=== PATIENT | female | born 1950 | race Caucasian/White ===

== ENCOUNTER 2016-10-02 10:48 | Day surgery (SDC) | payer MEDICARE, OTHER ==
[~2016-10-02] VITALS: Ht 152.4 cm; Wt 98.2 kg
--- NOTE | 2016-10-02 07:47 | PCM.HPANE ---
Patient Data Surgeon Admitting Provider: Attending Provider:Lauren Reynoso MD Primary Care Physician:Fanny Glasgow MD Other Provider:[facility] Reason for Visit Mixed Incontinence, Urgency Of Urination Ht/WT & BMI Height (Feet): 5 Height (Inches): 0 Weight (Kilograms): 98.88 Body Mass Index 42.00 Allergies Uncoded Allergies: SULFA (Adverse Reaction, Severe, ITCHING, 10/01/16) Past Anesthesia History Anesthesia History: Denies:: Anesthesia Reactions, Malignant Hyperthermia Diabetes History Hx Diabetes?: Yes Type of Diabetes: Type II Glycemic Control: Diet Controlled MRSA MRSA: No Medications Blood Thinner: Aspirin Hypertension Medication: Yes (LOSARTAN) Reported Medications Solifenacin Succinate (Vesicare)5 Mg Gjfmyx26 Mg PO DAILY #60 TABLET 10/01/16 Zolpidem (Ambien)5 Mg Tablet5 Mg PO HS PRN For Insomnia Ref 0 10/01/16 Cholecalciferol (Vitamin D3) (Vitamin D)1,000 Unit Capsule1,000 Unit PO DAILY # 1 BOTTLE Ref 0 10/01/16 [place]-3 Fatty Acids/Fish Oil ([place] 3 1,000 mg Softgel)1 Each Capsule1 Each PO DAILY 10/01/16 Pravastatin 80 Mg Rxkqoz40 Mg PO HS Ref 0 10/01/16 Melatonin/Pyridoxine (Melatonin 3 mg Tablet)1 Each Tablet1-2 Each PO HS PRN PRN MR X1 10/01/16 Losartan Potassium 25 Mg Cnaltw21 Mg PO DAILY 10/01/16 Levothyroxine 150 Mcg Fjtjcs197 Mcg PO DAILY Ref 0 10/01/16 Fluoxetine 20 Mg Dqpcqim17 Mg PO DAILY Ref 0 10/01/16 Ferrous Gluconate 324 Mg Izhxnh266 Mg PO DAILY Ref 0 10/01/16 Calcium Carbonate 650 Mg Tablet1,300 Mg PO DAILY 10/01/16 Aspirin 81 Mg Flnwyx30 Mg PO DAILY Ref 0 10/01/16 Discontinued Reported Medications Nitrofurantoin Monohyd/M-Cryst (MacroBid)100 Mg Cdfbkid257 Mg PO HS Ref 0 10/01/16 Cephalexin (Keflex)500 Mg Ufxjyjd915 Mg PO BID #40 CAPSULE Ref 0 10/01/16 Oxybutynin Chloride ER 10 Mg Tab.er.2410 Mg PO DAILY Ref 0 10/01/16 History History of ENT Problems?: Yes Hx of Heart Problems?: Yes Cardiovascular History: Positive for:: Heart Murmur (REPORTED BY PT; NONE HEARD ON PREOP EXAM) Hypertension (HYPERLIPIDEMIA) Other Cardiac History: HX OF ANEMIA Hx of Respiratory Problem?: Yes Respiratory History: Positive for:: Pneumonia (HX OF) Use of C-PAP Machine (JEFFERSON+ PRIOR TO WT LOSS/GASTRIC BYPASS) Hx Neurologic Problems?: No Hx of GI Problems?: Yes Gastrointestinal History: Positive for:: Heartburn (INTERMITTANT) Other GI Pertinent History: S/P GASTRIC BYPASS,INCISIONAL HERNIA RPR Hx of Problems?: Yes Female Hx: Denies:: Currently (S/P BTL) Skin History: Denies:: History Skin Disorders? Pressure Ulcers Hx Musculoskeletal Problems?: Yes Musculoskeletal History: Positive for:: Musculoskeletal Trauma (S/P RT WRIST ORIF,CTR) Hx of Psycho/Social Problems?: Yes Psycho Social History: Positive for:: Anxiety Hx Depression Hx Surgeries?: Yes (GASTRIC BYPASS,INCISIONAL HERNIA RPR,CTR,BTL,RT WRIST ORIF) Hx Any Other Health Problems?: Yes Other History: Positive for:: Thyroid Disease Denies:: Cancer Endocrine Disease Hospitalization History Blood Transfusions: Positive for:: Accept Blood Products? Denies:: Blood Transfusions Hx Diabetes: Yes Hx Alcohol Use: YesAlcoholic Drinks Per Day: 1-2/YRHx Substance Use: NoHave You Smoked inLast 12 mo: NoApprox How Many Cigarettes/day: 1 PPD X 15YRS Stop/Bang S-Snoring: Do You Snore Loudly: Yes T-Tired: feel tired, fatigued: No O-Obsered: Observed not breath: No P-Blood Pressure: treated: Yes B- Body Mass Index > 35 kg/m2: Yes A- Age over 50: Yes N- Neck Large Circumference: No G- Gender Male: No JEFFERSON Total Score: 4 JEFFERSON Risk Assessment: High Risk, =/>3 Yes JEFFERSON Category 4 OutPt Procedure: Yes Risk Assessment Category Category 1A: Patient has history of documented sleep apnea, and HAS NOT received any narcotic, sedative or anesthesia administration during this stay. Category 1B: Patient has history of documented sleep apnea, and HAS received any narcotic , sedative or anesthesia administration during this stay Category 2: Patient has SUSPECTED Obstructive Sleep Apnea, and HAS received any narcotic , sedative or anesthesia administration during this stay. Category 3: Patient has SUSPECTED Obstructive Sleep Apnea and HAS NOT received narcotic, sedative or anesthesia administration during this stay. Category 4: Outpatient in Procedural Areas with known sleep apnea or who screen positive for High Risk via the STOP/BANG questionnaire. Exam Exam General Appearance: Alert, Oriented X3, Cooperative, No Acute Distress HEENT/AIRWAY: MP 2 Lungs: Clear to Auscultation, Normal Air Movement Heart: Exam Unremarkable, Regular Rate/Rhythm, No Murmurs/Rubs/Gallops Plan Impression Patient chart reviewed, patient interviewed and anesthestic plan with risks, benefits, and alternatives discussed, and informed consent obtained. ASA Physical Status: ASA3 Severe Disease Anesthetic Plan: MAC Bene/Risks/Altern/Consents: Yes HP Complete Prior to Induction: Yes Sandrine Garcia MD Oct 02, 2016 07:47
[~2016-10-02 10:48] MED LIST: ASPI-973 PO; CALC650T19 PO; CEPH-512 PO; CHOL100045 PO; CeFAZolin 2 Gm/50 mL D5W IV Premix IV ONE; FERR324T5 PO; FLUO20CA25 PO; LEVO150T5 PO; LOSA25TA21 PO; MELA1TAB11 PO; NITR100 PO; OMEG1CAP56 PO; OXYB10TA PO; PRAV80TA2 PO; SOLI5TAB2 PO; ZLP5T PO
[2016-10-02] MEDS ORDERED: Propofol 10,000 mCg/mL 20 mL Inj ONE (10:49)
[2016-10-02] MEDS ORDERED: fentaNYL-PF 50 mCg/mL 2 mL Inj ONE (10:49)
[2016-10-02 11:13] VITALS: BP 154/87; PULSE 81; RESP 18; O2SAT 97
[2016-10-02] MEDS ORDERED: CeFAZolin 2 Gm/50 mL D5W Duplex Bag IV ONE (11:27)
[2016-10-02] MEDS: Lactated Ringer's 1,000 ML IV SCH ×3 (11:44→12:20)
[2016-10-02] MEDS ORDERED: Bupivacaine-MPF 0.25% 30 mL Inj INFILTRATE ONE (12:33)
[2016-10-02] MEDS ORDERED: Vancomycin 1,000 mg Inj IRRIGATION ONE (12:33)
[2016-10-02] MEDS ORDERED: Gentamicin 40 mg/mL 2 mL Inj IRRIGATION ONE (12:33)
[2016-10-02] MEDS ORDERED: Lactated Ringer's 1,000 ML IV SCH (12:34)
[2016-10-02] MEDS ORDERED: Lactated Ringer's 500 ML IV PRN (12:34)
[2016-10-02] MEDS ORDERED: EPHEDrine Sulfate 50 mg/mL Inj IVPUSH PRN (12:35)
[2016-10-02] MEDS ORDERED: Dexamethasone 4 mg/mL Inj IVPUSH PRN (12:35)
[2016-10-02] MEDS ORDERED: Phenylephrine 10,000 mCg/mL Inj IVPUSH PRN (12:35)
[2016-10-02] MEDS ORDERED: Ondansetron 2 mg/mL 2 mL Inj IVPUSH PRN (12:35)
[2016-10-02] MEDS ORDERED: fentaNYL-PF 50 mCg/mL 2 mL Inj IVPUSH PRN (12:35)
[2016-10-02] MEDS ORDERED: MetoCLOpramide 5 mg/mL 2 mL Inj IVPUSH PRN (12:35)
[2016-10-02] MEDS ORDERED: hydrALAZINE 20 mg/mL Inj IVPUSH PRN (12:35)
[2016-10-02] MEDS ORDERED: HYDROmorphone 1 mg/mL Inj IVPUSH PRN (12:35)
[2016-10-02] MEDS ORDERED: Atropine 0.4 mg/mL Inj IVPUSH PRN (12:35)
[2016-10-02] MEDS ORDERED: Labetalol 5 mg/mL 4 mL Inj IV PRN (12:35)
[2016-10-02] MEDS ORDERED: Ondansetron 8 mg ODT Tablet PO PRN (14:00)
[2016-10-02] MEDS ORDERED: HYDROcodone-APAP 5-325 mg Tablet PO PRN (14:00)
[2016-10-02 14:02] VITALS: BP 149/66; PULSE 68; RESP 18; O2SAT 95
--- NOTE | 2016-10-02 14:04 | DRSVH ---
PROCEDURE: X-RAY SURGICAL FLUORO C-ARM <1 HR INDICATIONS: STAGE ONE INTERSTIM COMPARISON: None. FINDINGS: Presumed bladder stimulator catheter is noted to traverse the sacrum. IMPRESSION: Presumed bladder stimulator catheter noted. Dictated by: Ed Simental RR Interpreted: Lupe Figueroa MD on 10/02/2016 at 14:03 Transcribed by: MERRICK on 10/02/2016 at 14:04 Approved by: Lupe Figueroa MD, PhD on 10/02/2016 at 16:15
--- NOTE | 2016-10-02 14:12 | PCM.ANEP1 ---
Post Anesthesia Phase 1 PACU Phase 1 Assessment Vital Signs Vital Signs Date Time Temp Pulse Resp B/P Pulse Ox O2 Delivery O2 Flow Rate FiO2 10/02/16 14:02 36.9 68 18 149/66 95 Room Air 10/02/16 11:13 36.8 81 18 154/87 97 Room Air Level of Alertness: Awake, talking ANTHONY's with Equal Strength: Yes Pain: No Nausea or Vomiting: No Oxygen Delivery: Room Air Lungs: Clear to Auscultation, Normal Air Movement Sandrine Garcia MD Oct 02, 2016 14:12
[2016-10-02 14:50] VITALS: BP 157/74; PULSE 72; RESP 20; O2SAT 97
--- NOTE | 2016-10-02 15:35 | PCM.ANEP2 ---
Post Anesthesia Evaluation ASA/CMS Post Anesthesia VS in Patient's Normal Range?: Yes Resp Stable; Airway Patent?: Yes CV Function & Hydration Stable: Yes Mental Status Recovered?: Yes Pain control Satisfactory?: Yes N/V Control Satisfactory?: Yes Sandrine Garcia MD Oct 02, 2016 15:35
--- NOTE | 2016-10-03 14:06 | OP ---
[address] [address] OPERATIVE REPORT PATIENT: ARLENE PACHECO : 1950 MR#: [id number] ADMIT: 10/02/2016 JOB ID: [id number] DATE OF SURGERY: 10/02/2016 PROCEDURE: 1. Stage 1 InterStim implant to include transforaminal placement of sacral neuro electrode through the S3 foramen. 2. Fluoroscopic imaging and guidance. SURGEON: Lauren Reynoso MD. ANESTHESIA: Local with monitored anesthesia care. PREOPERATIVE DIAGNOSIS(ES): Intractable urinary urgency, frequency, urge incontinence. POSTOPERATIVE DIAGNOSIS(ES): Intractable urinary urgency, frequency, urge incontinence. INDICATIONS: The patient is a 66-year-old with a very longstanding history of severe urinary tract symptoms including urinary urgency, frequency, urge incontinence, failing conservative measures, medical treatments, multiple medications. Electing trial of sacral nerve modulation for her issues. PROCEDURE IN DETAIL: After appropriate informed consent was obtained, patient was brought to the operating room. She received IV antibiotics prior to onset of the procedure. She was made comfortable in the prone position. All pressure points carefully padded. Fluoroscope was brought in. She was cleaned, prepped, and draped in usual sterile fashion. We identified bony landmarks made somewhat difficult by patient's body habitus. A 5-inch finder needle was used to traverse first the right and then the left S3 foramen, testing numerous locations. Ultimately, we selected a lead placement with excellent jules responses at very low thresholds of 0.2 to 0.3 on all four electrodes. We were unable to elicit toe response in any needle placement scenario after testing numerous on the right than the left. Location chosen was on the right. The finder needle was used to convert in Seldinger fashion over to the quadripolar electrode which advanced nicely into good position. As above, we had good responses of jules and appropriate sensory response at very low thresholds on all four electrodes. Fluoroscopy confirmed good position. We then created a right-sided buttock pocket sharply and bluntly with electrocautery. Tunneled the distal end of the lead itself out to this area, made a connection to the extension wire, the disposable, which was then tunneled out to the patient's left side, the contralateral side, to maximize distance between the internalized permanent portion of the lead and the externalized portion of the wire to prevent infection. Wounds themselves were irrigated out copiously with antibiotic solution. There was good hemostasis. We closed them in a layer of 2-0 Vicryl, layer of 4-0 Monocryl, and benzoin and Steri-Strips. A sterile dressing was applied. The patient tolerated procedure very well, was awakened and taken back to the one-day surgery area prior to discharge to home.
== END 2016-10-02 23:59 | disposition home or self-care (01) ==
LOC: SAS 10:48
PROVIDERS: ATTEND Urology
DX: N39.46 Mixed incontinence (principal); R35.0 Frequency of micturition; Z87.440 Personal history of urinary (tract) infections; I10 Essential (primary) hypertension; E78.5 Hyperlipidemia, unspecified; E11.9 Type 2 diabetes mellitus without complications; E03.9 Hypothyroidism, unspecified; D64.9 Anemia, unspecified; K21.9 Gastro-esophageal reflux disease without esophagitis; R01.1 Cardiac murmur, unspecified; E66.01 Morbid (severe) obesity due to excess calories; Z68.41 Body mass index [BMI] 40.0-44.9, adult; Z98.84 Bariatric surgery status; Z87.891 Personal history of nicotine dependence; Z79.82 Long term (current) use of aspirin
CPT/HCPCS: 64581; 76000; C1778; J0690; J1580; J2250; J3010; J3370; J7120

== ENCOUNTER 2016-10-11 06:18 | Day surgery (SDC) | payer MEDICARE, OTHER ==
[~2016-10-11] VITALS: Ht 152.4 cm; Wt 99.2 kg
[~2016-10-11 06:18] MED LIST changes: -CEPH-512 PO; -CeFAZolin 2 Gm/50 mL D5W IV Premix IV ONE; +CeFAZolin Inj 2 GM in IV Premix 1 EACH IV ONE; -NITR100 PO; -OXYB10TA PO
[2016-10-11] MEDS ORDERED: fentaNYL-PF 50 mCg/mL 2 mL Inj ONE (06:19)
[2016-10-11] MEDS ORDERED: Lidocaine PF 1% 30 mL Inj ONE (06:19)
[2016-10-11] MEDS ORDERED: Propofol 10,000 mCg/mL 20 mL Inj ONE (06:19)
[2016-10-11] MEDS: Lactated Ringer's 1,000 ML IV SCH ×2 (06:30→08:48)
[2016-10-11 06:42] VITALS: BP 139/66; PULSE 63; RESP 14; O2SAT 95
[2016-10-11 07:03] VITALS: BP 139/66; PULSE 63; RESP 14; O2SAT 95
[2016-10-11] MEDS ORDERED: SULF1TAB7 PO (07:12)
[2016-10-11] MEDS ORDERED: Phenylephrine 10,000 mCg/mL Inj IVPUSH PRN (07:50)
[2016-10-11] MEDS ORDERED: Lactated Ringer's 500 ML IV PRN (07:50)
[2016-10-11] MEDS ORDERED: EPHEDrine Sulfate 50 mg/mL Inj IVPUSH PRN (07:50)
[2016-10-11] MEDS ORDERED: Lactated Ringer's 1,000 ML IV SCH (07:50)
[2016-10-11] MEDS ORDERED: MetoCLOpramide 5 mg/mL 2 mL Inj IVPUSH PRN (07:50)
[2016-10-11] MEDS ORDERED: hydrALAZINE 20 mg/mL Inj IVPUSH PRN (07:50)
[2016-10-11] MEDS ORDERED: HYDROmorphone 1 mg/mL Inj IVPUSH PRN (07:50)
[2016-10-11] MEDS ORDERED: Ondansetron 2 mg/mL 2 mL Inj IVPUSH PRN (07:50)
[2016-10-11] MEDS ORDERED: Atropine 0.4 mg/mL Inj IVPUSH PRN (07:50)
[2016-10-11] MEDS ORDERED: Dexamethasone 4 mg/mL Inj IVPUSH PRN (07:50)
[2016-10-11] MEDS ORDERED: Labetalol 5 mg/mL 4 mL Inj IV PRN (07:50)
[2016-10-11] MEDS ORDERED: fentaNYL-PF 50 mCg/mL 2 mL Inj IVPUSH PRN (07:50)
--- NOTE | 2016-10-11 08:13 | PCM.HPANE ---
Patient Data Date of Service: Oct 11, 2016 Surgeon Admitting Provider: Attending Provider:Lauren Reynoso MD Primary Care Physician:Fanny Glasgow MD Other Provider:Damion Saha Anesthesia Reason for Visit Mixed Incontinence, Urgency Of Urination Ht/WT & BMI Height (Feet): 5 Height (Inches): 0.00 Weight (Kilograms): 99.200 Body Mass Index 42.00 Allergies Uncoded Allergies: SULFA (Adverse Reaction, Severe, ITCHING, 10/01/16) Past Anesthesia History Anesthesia History: Denies:: Anesthesia Reactions, Malignant Hyperthermia Diabetes History Hx Diabetes?: No Type of Diabetes: Type II Glycemic Control: Diet Controlled MRSA MRSA: No Medications Blood Thinner: Aspirin Hypertension Medication: Yes Home Meds Incl Beta Kassandra: No Reported Medications Sulfamethoxazole/Trimeth 800-160 mg (Bactrim DS)1 Each Tablet1 Tablet PO BID Ref 0 10/11/16 Zolpidem (Ambien)5 Mg Tablet5 Mg PO HS PRN For Insomnia Ref 0 10/01/16 Cholecalciferol (Vitamin D3) (Vitamin D)1,000 Unit Capsule1,000 Unit PO DAILY # 1 BOTTLE Ref 0 10/01/16 [place]-3 Fatty Acids/Fish Oil ([place] 3 1,000 mg Softgel)1 Each Capsule1 Each PO DAILY 10/01/16 Pravastatin 80 Mg Kokouj41 Mg PO HS Ref 0 10/01/16 Melatonin/Pyridoxine (Melatonin 3 mg Tablet)1 Each Tablet1-2 Each PO HS PRN PRN MR X1 10/01/16 Losartan Potassium 25 Mg Zvjoyj18 Mg PO DAILY 10/01/16 Levothyroxine 150 Mcg Hqnezl795 Mcg PO DAILY Ref 0 10/01/16 Fluoxetine 20 Mg Ckmkrzp48 Mg PO DAILY Ref 0 10/01/16 Ferrous Gluconate 324 Mg Mlrolu800 Mg PO DAILY Ref 0 10/01/16 Calcium Carbonate 650 Mg Tablet1,300 Mg PO DAILY 10/01/16 Aspirin 81 Mg Koiuqv39 Mg PO DAILY Ref 0 10/01/16 Discontinued Reported Medications Solifenacin Succinate (Vesicare)5 Mg Dsblld88 Mg PO DAILY #60 TABLET 10/01/16 History History of ENT Problems?: Yes Hx of Heart Problems?: Yes Cardiovascular History: Positive for:: Heart Murmur (REPORTED BY PT; NONE HEARD ON PREOP EXAM) Hypertension Hx of Respiratory Problem?: No Respiratory History: Positive for:: Pneumonia (HX OF) Denies:: Use of C-PAP Machine (past hx of use, not since wt loss) Hx Neurologic Problems?: No Hx of GI Problems?: Yes Gastrointestinal History: Positive for:: Heartburn (intermittent) Other GI Pertinent History: hx of gastric bypass Hx of Problems?: Yes Genitourinary History: Denies:: Urinary Tract Infection Female Hx: Denies:: Currently Skin History: Denies:: History Skin Disorders? Pressure Ulcers Hx Musculoskeletal Problems?: Yes Musculoskeletal History: Positive for:: Musculoskeletal Trauma (S/P RT WRIST ORIF,CTR) Hx of Psycho/Social Problems?: Yes Psycho Social History: Positive for:: Anxiety Hx Depression Hx Surgeries?: Yes (GASTRIC BYPASS,INCISIONAL HERNIA RPR,CTR,BTL,RT WRIST ORIF) Hx Any Other Health Problems?: Yes Other History: Positive for:: Thyroid Disease Denies:: Cancer Endocrine Disease Hospitalization History Blood Transfusions: Denies:: Blood Transfusions Hx Diabetes: No Hx Alcohol Use: YesHx Substance Use: No Smoking Status: Former Smoker Have You Smoked inLast 12 mo: No Stop/Bang P-Blood Pressure: treated: Yes B- Body Mass Index > 35 kg/m2: Yes A- Age over 50: Yes N- Neck Large Circumference: Yes G- Gender Male: No JEFFERSON Risk Assessment: High Risk, =/>3 Yes JEFFERSON Category 4 OutPt Procedure: Yes Risk Assessment Category Category 1A: Patient has history of documented sleep apnea, and HAS NOT received any narcotic, sedative or anesthesia administration during this stay. Category 1B: Patient has history of documented sleep apnea, and HAS received any narcotic , sedative or anesthesia administration during this stay Category 2: Patient has SUSPECTED Obstructive Sleep Apnea, and HAS received any narcotic , sedative or anesthesia administration during this stay. Category 3: Patient has SUSPECTED Obstructive Sleep Apnea and HAS NOT received narcotic, sedative or anesthesia administration during this stay. Category 4: Outpatient in Procedural Areas with known sleep apnea or who screen positive for High Risk via the STOP/BANG questionnaire. Exam Exam Vital Signs Vital Signs Date Time Temp Pulse Resp B/P Pulse Ox O2 Delivery O2 Flow Rate FiO2 10/11/16 07:03 35.6 63 14 139/66 95 Room Air 10/11/16 06:42 35.6 63 14 139/66 95 Room Air General Appearance: Alert, Oriented X3, Cooperative HEENT/AIRWAY: MP 3, Neck Movement ([place]) Lungs: Clear to Auscultation, Normal Air Movement Heart: Regular Rate/Rhythm, Normal S1, Normal S2 Meds/Labs/Diagnostics Admission Meds Current Medications Lactated Ringer's (Lr) 1,000 ml @ 120 mls/hr Q8H20M IV Last administered on t 06:30; Start 10/11/16 at 05:00; Stop 10/11/16 at 13:19 Plan Impression Patient chart reviewed, patient interviewed and anesthestic plan with risks, benefits, and alternatives discussed, and informed consent obtained. NPO Status: 7PM ASA Physical Status: ASA3 Severe Disease (morbid obesity) Anesthetic Plan: MAC Bene/Risks/Altern/Consents: Yes HP Complete Prior to Induction: Yes Tyler Mendez MD Oct 11, 2016 07:50
[2016-10-11] MEDS ORDERED: Gentamicin 40 mg/mL 2 mL Inj IRRIGATION ONE (08:47)
[2016-10-11] MEDS ORDERED: Bupivacaine-MPF 0.5% W/EPI 30 mL Inj INFILTRATE ONE (08:47)
[2016-10-11] MEDS ORDERED: Vancomycin 1,000 mg Inj IRRIGATION ONE (08:48)
--- NOTE | 2016-10-11 09:09 | PCM.ANEP1 ---
Post Anesthesia Phase 1 PACU Phase 1 Assessment Date of Service: Oct 11, 2016 Vital Signs Phase II - HR 66. O2 95% RA, RR 12, BP 36.1, 130/65 Vital Signs Date Time Temp Pulse Resp B/P Pulse Ox O2 Delivery O2 Flow Rate FiO2 10/11/16 07:03 35.6 63 14 139/66 95 Room Air 10/11/16 06:42 35.6 63 14 139/66 95 Room Air Anesthetic Administered: MAC Level of Alertness: Awake, talking ANTHONY's with Equal Strength: No Pain: No Nausea or Vomiting: No Oxygen Delivery: Room Air Lungs: Normal Air Movement Tyler Mendez MD Oct 11, 2016 09:09
[2016-10-11 09:12] VITALS: BP 130/65; PULSE 65; RESP 16; O2SAT 95
[2016-10-11] MEDS ORDERED: Ondansetron 8 mg ODT Tablet PO PRN (09:15)
[2016-10-11] MEDS ORDERED: HYDROcodone-APAP 5-325 mg Tablet PO PRN (09:15)
--- NOTE | 2016-10-11 09:17 | PCM.ANEP2 ---
Post Anesthesia Evaluation ASA/CMS Post Anesthesia Date of Service: Oct 11, 2016 VS in Patient's Normal Range?: Yes Resp Stable; Airway Patent?: Yes CV Function & Hydration Stable: Yes Mental Status Recovered?: Yes Pain control Satisfactory?: Yes N/V Control Satisfactory?: Yes Tyler Mendez MD Oct 11, 2016 09:17
[2016-10-11 09:56] VITALS: BP 140/61; PULSE 56; RESP 16; O2SAT 98
--- NOTE | 2016-10-12 22:01 | OP ---
[address] [address] OPERATIVE REPORT PATIENT: ARLENE PACHECO : 1950 MR#: [id number] ADMIT: 10/11/2016 JOB ID: [id number] DATE OF SURGERY: 10/11/2016 SURGEON: Lauren Reynoso MD. PREOPERATIVE DIAGNOSIS(ES): Intractable urinary urgency, frequency, urge incontinence. POSTOPERATIVE DIAGNOSIS(ES): Intractable urinary urgency, frequency, urge incontinence. PROCEDURE NAME: Phase 2 InterStim implant to include 1 implantable pulse generator implantation 2 complex initial programming and setup of device. ANESTHESIA: Local with monitored anesthesia care and IV sedation. INDICATIONS: Patient is a 66-year-old woman with multiple medical problems and severe urinary urgency, urgency incontinence, refractory to conservative management of behavioral changes, pelvic floor exercises, and numerous medications, wishing to proceed with a trial of sacral nerve modulation. The patient underwent an implantation of a right-sided electrode on October 02, 2016, with outstanding results, better than 80% improvement with a drastic reduction in her urgency and her urge incontinence. Occasional dribbles from soaking events, greatly decreased pad usage, one thin liner just in case. Nocturia vastly improved as well, wishing to proceed with permanent implantation. PROCEDURE IN DETAIL: After appropriate informed consent was obtained, patient was brought to the operating room. She received IV antibiotics prior to onset of procedure. She was made comfortable in the prone position. All pressure points were carefully padded. Cleaned, prepped, and draped usual sterile fashion. The area overlying the right-sided buttock pocket was infiltrated with a half/half mixture of lidocaine, Marcaine with epinephrine for anesthesia. It was opened up sharply, bluntly and with electrocautery. We identified the lead itself. The connection to the external portion of the lead was disconnected. We cut the extension wire itself and allowed the externalized portion to fall away. The internal portion was handed off leaving only the distal end of the intact quadripolar electrode visible. The pocket itself was enlarged to accommodate the size of the Medtronic 2 IPG. It was irrigated out copiously with antibiotic solution. Hemostasis achieved with electrocautery. We then attached the Medtronic 2 IPG. Gentle tug revealed a good connection. We used the ratcheted screwdriver. Device was placed into the pocket. It was irrigated out before and after with antibiotic solution of vancomycin and gentamicin. Hemostasis was good. It was closed in layers with a layer of 2-0 Vicryl, layer of 4-0 Monocryl and a layer of Dermabond. The patient was then taken awake in good condition back to the one-day surgery area where the device itself was setup and programmed initially, turned on, and found to be operating in normal fashion with a rate of 14, pulse width of 210. Program one was set at 0 negative and 3 positive. Program two was 1 negative and 3 positive. Program three was 2 negative and 0 positive. Program four was 3 negative and 0 positive. MTDD
== END 2016-10-11 23:59 | disposition home or self-care (01) ==
LOC: SAS 06:18
PROVIDERS: ATTEND Urology
DX: N39.46 Mixed incontinence (principal); R35.0 Frequency of micturition; I10 Essential (primary) hypertension; E78.5 Hyperlipidemia, unspecified; E03.9 Hypothyroidism, unspecified; E11.9 Type 2 diabetes mellitus without complications; R01.1 Cardiac murmur, unspecified; D64.9 Anemia, unspecified; K21.9 Gastro-esophageal reflux disease without esophagitis; E66.01 Morbid (severe) obesity due to excess calories; Z68.41 Body mass index [BMI] 40.0-44.9, adult; Z87.891 Personal history of nicotine dependence; Z79.82 Long term (current) use of aspirin; Z87.440 Personal history of urinary (tract) infections
CPT/HCPCS: 64590; 95972; C1767; J0690; J1580; J2250; J3010; J3370; J7120